=== PATIENT | male | born 1945 | race Caucasian/White ===

== ENCOUNTER 2021-03-21 18:11 | Inpatient (IN) | payer MEDICARE, OTHER ==
[~2021-03-21] VITALS: Ht 177.8 cm; Wt 90.4 kg
[2021-03-22] MEDS ORDERED: ASPIRIN EC81 MG PO (02:27)
[2021-03-22] MEDS ORDERED: ATORVASTATIN CA80 MG PO (02:28)
[2021-03-22] MEDS ORDERED: GABAPENTIN100 MG PO (02:28)
[2021-03-22] MEDS ORDERED: HYDROCHLOROTHIA25 MG PO (02:29)
[2021-03-22] MEDS ORDERED: GLIPIZIDE10 MG PO (02:30)
[2021-03-22] MEDS ORDERED: ELIQUIS5 MG PO (02:31)
[2021-03-22] MEDS ORDERED: STOOL SOFTENER240 MG PO (02:31)
[2021-03-22] MEDS ORDERED: RANOLAZINE ER500 MG PO (02:31)
[2021-03-22] MEDS ORDERED: METOPROLOL SUC100 MG PO (02:32)
[2021-03-22 03:25] LABS: HEMOGLOBIN 7.8 gm/dl (14.0-17.5); RED BLOOD COUNT 2.81 M/UL (4.20-5.50); WHITE BLOOD COUNT 7.1 K/UL (4.5-11.0)
[2021-03-23 02:54] LABS: HEMOGLOBIN 7.1 gm/dl (14.0-17.5); RED BLOOD COUNT 2.54 M/UL (4.20-5.50); WHITE BLOOD COUNT 7.9 K/UL (4.5-11.0)
[2021-03-23 10:08] LABS: VITAMIN D, 25-HYDROXY 7.8 ng/mL (30.0-100.0)
[2021-03-23] MEDS ORDERED: TOUJEO MAX300 UNIT/1 SC ×2 (11:38→11:39)
[2021-03-23 12:09] LABS: MAGNESIUM 1.9 mg/dL (1.6-2.3)
[2021-03-23 15:15] LABS: HEMOGLOBIN 7.1 gm/dl (14.0-17.5); RED BLOOD COUNT 2.65 M/UL (4.20-5.50); WHITE BLOOD COUNT 6.3 K/UL (4.5-11.0)
[2021-03-23] MEDS ORDERED: DAILY VITE1 EACH PO (15:58)
[2021-03-23] MEDS ORDERED: TOPROL XL50 MG PO (15:58)
[2021-03-23] MEDS ORDERED: FERROUS GLUCON324 M2 PO (15:58)
[2021-03-23] MEDS ORDERED: HYDRALAZINE HCL25 MG PO (15:58)
--- NOTE | 2021-03-23 16:01 | NUR ---
OK FOR PT TO TRANSPORT BY BLS PER DR GUADARRAMA. VITALS STABLE. PT NO COMPLAINTS OF PAIN
[2021-03-23] MEDS ORDERED: LOKELMA5 GM PO (16:13)
== END 2021-03-23 17:31 | disposition home or self-care (01) | DRG 684 ==
LOC: PROG CARE 03-22 01:47
PROVIDERS: Internal Medicine; Internal Medicine Nephrology; ADMIT Internal Medicine Infectious Disease
DX: N17.9 Acute kidney failure, unspecified (principal); E87.5 Hyperkalemia; Z20.822 Contact with and (suspected) exposure to COVID-19; I12.9 Hypertensive chronic kidney disease with stage 1 through stage 4 chronic kidney disease, or unspecified chronic kidney disease; N18.30 Chronic kidney disease, stage 3 unspecified; D63.1 Anemia in chronic kidney disease; D52.9 Folate deficiency anemia, unspecified; W18.39XA Other fall on same level, initial encounter; E11.22 Type 2 diabetes mellitus with diabetic chronic kidney disease; I25.10 Atherosclerotic heart disease of native coronary artery without angina pectoris; E83.51 Hypocalcemia; Z95.5 Presence of coronary angioplasty implant and graft
CPT/HCPCS: 36415; 80048; 80053; 82436; 82570; 82607; 82728; 82746; 82962; 83036; 83540; 83550; 83735; 83970; 84100; 84133; 84156; 84300; 84443; 85025; 89050; J1756; J7030; P9047